=== PATIENT | female | born 1985 | race Two or more races ===

== ENCOUNTER 2017-01-08 02:22 | Emergency (ER) | payer OTHER ==
[2017-01-08] MEDS ORDERED: Morphine INJ* 4 MG/ML 1 ML CARPUJECT IV ONE (02:49)
[2017-01-08] MEDS ORDERED: NS 0.9% 1000 ML* 1,000 ML IV ONE (02:49)
[2017-01-08] MEDS ORDERED: Ondansetron INJ* 2 MG/ML VIAL IV ONE (02:49)
[2017-01-08 03:15] LABS: Add Diff/Slide Review? Slide Review Added; Comments Flag Yes; Hematocrit 39 % (35-47); Hemoglobin 12.9 g/dl (12.0-16.0); Mean Corpuscular HGB Conc 33 g/dl (31-36); Mean Corpuscular Hemoglobin 24 pg (27-31); Mean Corpuscular Volume 73 fL (80-97); Mean Platelet Volume 9 um3 (7.4-10.4); Red Blood Count 5.33 10^6/ul (4.0-5.4); Red Cell Distribution Width 14 % (10.5-15); White Blood Count 6.6 10^3/ul (3.5-10.8)
[2017-01-08 03:32] LABS: ALT 16 U/L (7-52); AST 19 U/L (13-39); Albumin 4.5 g/dL (3.2-5.2); Alkaline Phosphatase 56 U/L (34-104); Anion Gap 10 mmol/L (2-11); BUN/Creatinine Ratio 25.4 (8-20); Blood Urea Nitrogen 18 mg/dL (6-24); CO2 Carbon Dioxide 20 mmol/L (22-32); Calcium 9.8 mg/dL (8.6-10.3); Chloride 103 mmol/L (101-111); EGFR African American 124.3 (>60); EGFR Non-African American 96.7 (>60); Globulin 3.5 g/dL (2-4); Glucose 97 mg/dL (70-100); Lipase 32 U/L (11.0-82.0); Potassium 3.5 mmol/L (3.5-5.0); Sodium 133 mmol/L (133-145)
[2017-01-08] MEDS ORDERED: Iohexol 300* (CONTRAST) 10 ML SDV IV ONE (03:41)
[2017-01-08 03:42] LABS: Urine Bilirubin Negative (Negative); Urine Glucose Negative (Negative); Urine Nitrite Negative (Negative)
[2017-01-08] MEDS ORDERED: Pantoprazole IV* 80 MG in NS 0.9% 250 ML* 250 ML IVPB ONE (04:30)
[2017-01-08 05:39] VITALS: BP 100/49
--- NOTE | 2017-01-08 07:00 | ED ---
Alejandro Paz Adam, scribed for Froylan Pino on 01/08/17 at 0243 . Abdominal Pain/Female - HPI Summary HPI Summary: Pt is a 31 year old female presenting with epigastric pain. She states that the pain set on suddenly at 01:30 this morning and it has been radiating to her back. She took Protonix but it did not alleviate her pain. She has never had this pain before. Pt denies any nausea, vomiting, and fever. She denies any PMHx or surgical hx. No tobacco/alcohol use. - History of Current Complaint Chief Complaint: EDAbdPain Stated Complaint: CHEST PAIN/BACK PAIN Time Seen by Provider: 01/08/17 02:36 Hx Obtained From: Patient Onset/Duration: Sudden Onset, Lasting Minutes, Still Present Timing: Constant Severity Initially: Moderate Severity Currently: Moderate Pain Intensity: 8 Pain Scale Used: 0-10 Numeric Location: Epigastric Radiates: Yes Radiates to: Back Aggravating Factor(s): Nothing Alleviating Factor(s): Nothing Associated Signs and Symptoms: Positive: Negative Allergies/Adverse Reactions: Allergies Allergy/AdvReac Type Severity Reaction Status Date / Time No Known Allergies Allergy Verified 01/08/17 02:32 PMH/Surg Hx/FS Hx/Imm Hx Previously Healthy: Yes Infectious Disease History: No Infectious Disease History: Denies: Traveled Outside the [place] in Last 30 Days - Family History Known Family History: Positive: None - Pt states "No" - Social History Occupation: Student Lives: Alone Alcohol Use: None Hx Substance Use: No Substance Use Type: Reports: None Hx Tobacco Use: No Smoking Status (MU): Never Smoked Tobacco Review of Systems Negative: Fever Positive: Abdominal Pain. Negative: Vomiting, Nausea All Other Systems Reviewed And Are Negative: Yes Physical Exam Triage Information Reviewed: Yes Vital Signs On Initial Exam: Initial Vitals Temp Pulse Resp BP Pulse Ox 99.2 F 67 22 96/68 100 01/08/17 02:29 01/08/17 02:29 01/08/17 02:29 01/08/17 02:29 01/08/17 02:29 Vital Signs Reviewed: Yes Appearance: Positive: Well-Appearing, No Pain Distress Skin: Positive: Warm, Skin Color Reflects Adequate Perfusion, Dry Head/Face: Positive: Normal Head/Face Inspection Eyes: Positive: EOMI, CAMI ENT: Positive: Normal ENT inspection Neck: Positive: Supple, Nontender Respiratory/Lung Sounds: Positive: Clear to Auscultation, Breath Sounds Present Cardiovascular: Positive: RRR, Pulses are Symmetrical in both Upper and Lower Extremities Abdomen Description: Positive: Soft, Other: - Tenderness in the epigastric region Bowel Sounds: Positive: Present Musculoskeletal: Positive: Normal, Strength/ROM Intact Neurological: Positive: Normal, Sensory/Motor Intact, Alert, Oriented to Person Place, Time Diagnostics - Vital Signs Vital Signs Temp Pulse Resp BP Pulse Ox 01/08/17 02:29 99.2 F 67 22 96/68 100 - Laboratory Result Diagrams: 01/08/17 03:00 01/08/17 03:00 Lab Statement: Any lab studies that have been ordered have been reviewed, and results considered in the medical decision making process. - Radiology CXR Xray Interpretation: No Acute Changes Radiology Interpretation Completed By: ED Physician - CT A/P CT Interpretation Completed By: Radiologist - NO BOWEL OBSTRUCTION, COLITIS, FREE FLUID OR FREE AIR. APPENDIX NOT SEEN WITH CERTAINTY. UNREMARKABLE STOMACH, LIVER, SPLEEN, PANCREAS AND GALLBLADDER. TINY CORTICAL HYPODENSITY RIGHT KIDNEY. 1.8 CM CORPUS LUTEUM LEFT KIDNEY. - Additional Comments Diagnostic Additional Comments: Troponin I - 0.00 Abdominal Pain Fem Course/Dx - Diagnoses Provider Diagnoses: Abdominal pain Discharge - Discharge Plan Condition: Stable Disposition: HOME Patient Education Materials: Abdominal Pain (ED) Referrals: [facility] HARJINDER Malcolm [Primary Care Provider] - Additional Instructions: Follow up with [facility] in 2-3 days. The documentation as recorded by the Alejandro simon Adam accurately reflects the service I personally performed and the decisions made by , Froylan Pino.
--- NOTE | 2017-01-08 08:08 | RAD ---
HISTORY: Abdominal pain COMPARISONS: None VIEWS: 2: Frontal dual-energy and lateral views of the chest. FINDINGS: CARDIOMEDIASTINAL SILHOUETTE: The cardiomediastinal silhouette is normal. CEE: The cee are normal. PLEURA: The costophrenic angles are sharp. No pleural abnormalities are noted. LUNG PARENCHYMA: The nipple shadow is noted overlying the left lower lung. Lung parenchyma is otherwise clear ABDOMEN: The upper abdomen is clear. There is no subphrenic gas. BONES AND SOFT TISSUES: No bone or soft tissue abnormalities are noted. OTHER: None. IMPRESSION: LEFT LOWER LUNG NIPPLE SHADOW. IF THERE IS CLINICAL CONCERN FOR PERIPHERAL NODULE, CONSIDER REPEAT EVALUATION WITH NIPPLE MARKERS. OTHERWISE UNREMARKABLE CHEST RADIOGRAPH
--- NOTE | 2017-01-08 08:28 | RAD ---
INDICATION: Abdominal/epigastric pain. Sudden onset of epigastric pain. COMPARISON: Chest radiograph of the same date. TECHNIQUE: Multidetector CT images were obtained from the lung bases to the ischial tuberosities with 77 mL Omnipaque 300 IV and oral contrast. Multiplanar reformation. REPORT: Unremarkable visualized inferior thorax. Normal size liver is decreased in density consistent with fatty infiltration. Distended gallbladder with suggestion of stones at the level of the neck. Small volume of pericholecystic fluid. No gross CT evidence for gallbladder wall thickening. Upper normal diameter of the common bile duct. No visualized common bile duct stones within limits of CT. Unremarkable pancreas and spleen. Negative for CT abnormality of the upper GI, small bowel, appendix visualized descending medial to the cecum, or colon. Negative for ascites, free air, or significant hernias. Normal adrenal glands. Unremarkable kidneys with symmetric nephrograms and pyelograms. Unremarkable ureters, urinary bladder, uterus, and adnexal regions. Negative for lymphadenopathy. Normal diameter abdominal aorta and iliac arteries. Physiologic distention of the IVC. Negative for suspicious osseous lesions. IMPRESSION: Distended gallbladder with evidence for cholelithiasis and small volume of pericholecystic fluid. Early acute cholecystitis is not excluded. Further assessment with RIGHT upper quadrant ultrasound suggested. Results and need for RIGHT upper quadrant ultrasound suggested with charge nurse Az in the ED 01/08/2017 8:13 AM EST
== END 2017-01-08 05:37 | disposition home or self-care (01) ==
LOC: ED 02:22
DX: R10.9 Unspecified abdominal pain (principal); R07.9 Chest pain, unspecified; M54.9 Dorsalgia, unspecified
CPT/HCPCS: 36415; 71020; 74177; 80053; 81003; 83690; 83880; 84484; 84702; 85025; 85610; 85730; 96374; 96375; 99283; J2270; J2405; Q9967

== ENCOUNTER 2017-01-08 13:39 | Emergency (ER) | payer OTHER ==
--- NOTE | 2017-01-08 15:24 | RAD ---
INDICATION: Cholelithiasis and possible cholecystitis. COMPARISON: Comparison is made with a prior CT of the abdomen and pelvis obtained earlier today. TECHNIQUE: Multiple real-time images of the right upper quadrant were obtained. FINDINGS: There are multiple gallstones present. No gallbladder wall thickening or pericholecystic fluid is seen. No positive sonographic Covarrubias sign was present. No intra or extrahepatic ductal distention is present. The common bile duct measured 0.3 cm in diameter. The liver is normal in size without significant focal abnormality. The pancreas is partially obscured by overlying bowel gas. The right kidney is normal in size without evidence for hydronephrosis. IMPRESSION: CHOLELITHIASIS, NO SPECIFIC EVIDENCE FOR ACUTE CHOLECYSTITIS.
[2017-01-08 16:15] VITALS: BP 102/65
--- NOTE | 2017-01-08 18:40 | ED ---
Abdominal Pain/Female - HPI Summary HPI Summary: Patient arrives back to ED after being discharged early this morning. Patient was seen for epigastric pain radiating to the back x 2 since this morning. Patient awoke in the night about 2 am with 10/10 pain. Last meal was several hours before and she does not feel they are related. Patient has constipation at baseline, but denies other GI issues. She was discharged after preliminary CT showed no acute changes or pathologies. Day radiologist read report as cholelithiasis and patient was called to return to ED. US completed which showed cholelithiasis without cholecystitis. Patient denies current pain but last meal was >15 hours ago. She states she has drunk some liquids without problems, but has not eaten. She was discharged with follow up with GI and prescription for pantoprazole. - History of Current Complaint Chief Complaint: EDAbdPain Stated Complaint: NEEDS ULTRASOUND/CALLED FROM ED Time Seen by Provider: 01/08/17 15:09 Hx Obtained From: Patient ?: No Onset/Duration: Sudden Onset Timing: Intermittent Episode Lasting - 30 minutes. Severity Initially: Severe Severity Currently: None Pain Intensity: 0 Pain Scale Used: 0-10 Numeric Location: Epigastric Radiates: Yes Radiates to: Back - midback Aggravating Factor(s): Nothing Alleviating Factor(s): Nothing Associated Signs and Symptoms: Positive: Constipation - Risk Factors Ectopic Risk Factor: Maternal Age ^ 30 Ovarian Torsion Risk Factor: Reproductive Age Allergies/Adverse Reactions: Allergies Allergy/AdvReac Type Severity Reaction Status Date / Time No Known Allergies Allergy Verified 01/08/17 02:32 PMH/Surg Hx/FS Hx/Imm Hx Previously Healthy: Yes Endocrine/Hematology History: Denies: Hx Diabetes Cardiovascular History: Denies: Hx Hypertension History: Denies: Hx Dialysis, Hx Renal Disease Infectious Disease History: No Infectious Disease History: Denies: Traveled Outside the [place] in Last 30 Days - Family History Known Family History: Positive: None - Pt states "No" - Social History Occupation: Employed Full-time Lives: With Family Alcohol Use: None Hx Substance Use: No Substance Use Type: Reports: None Hx Tobacco Use: No Smoking Status (MU): Never Smoked Tobacco Review of Systems Constitutional: Negative Eyes: Negative Cardiovascular: Negative Positive: Abdominal Pain, Other - constipation Positive: no symptoms reported, see HPI Musculoskeletal: Negative Skin: Negative Neurological: Negative Psychological: Normal All Other Systems Reviewed And Are Negative: Yes Physical Exam Triage Information Reviewed: Yes Vital Signs On Initial Exam: Initial Vitals Temp Pulse Resp BP Pulse Ox 98.8 F 82 16 102/69 100 01/08/17 13:44 01/08/17 13:44 01/08/17 13:44 01/08/17 13:44 01/08/17 13:44 Vital Signs Reviewed: Yes Appearance: Positive: Well-Appearing, No Pain Distress, Well-Nourished Skin: Positive: Warm, Skin Color Reflects Adequate Perfusion Eyes: Positive: Normal, CAMI, Conjunctiva Clear ENT: Positive: Normal ENT inspection Neck: Positive: Supple, Nontender, No Lymphadenopathy Respiratory/Lung Sounds: Positive: Clear to Auscultation, Breath Sounds Present Cardiovascular: Positive: Normal, RRR Abdomen Description: Positive: Other: - mild tenderness on deep palpation in all 4 quadrants. Negative murphys sign. Musculoskeletal: Positive: Normal, Strength/ROM Intact Neurological: Positive: Sensory/Motor Intact, Speech Normal Psychiatric: Positive: Normal AVPU Assessment: Alert Diagnostics - Vital Signs Vital Signs Temp Pulse Resp BP Pulse Ox 01/08/17 16:14 98.3 F 68 15 102/65 01/08/17 15:37 69 99 01/08/17 15:36 98/65 01/08/17 13:44 98.8 F 82 16 102/69 100 - Laboratory Lab Statement: Any lab studies that have been ordered have been reviewed, and results considered in the medical decision making process. Abdominal Pain Fem Course/Dx - Course Course Of Treatment: Patient seen this morning and discharged with rx for pantoprazole. Patient returned for US as preliminery failed to show any GB pathologies. Now, diagnosed with cholelthiasis without cholecystitis. Patient without pain at this time. Encouraged previous providers plan with trial of pantoprazole and follow up with GI. Patient also encouraged to take maalox for immediate break through pain and to return if symptoms fail to improve. - Diagnoses Differential Diagnosis: Positive: Constipation, Gall Bladder Disease, Peptic Ulcer Disease Provider Diagnoses: Epigastric abdominal pain Discharge - Discharge Plan Condition: Stable Disposition: HOME Patient Education Materials: Peptic Ulcer (ED), Gallstones (ED), Diet for Ulcers and Gastritis (ED) Referrals: HARJINDER Alegria [Primary Care Provider] - Jack Kerr MD [Medical Doctor] - Additional Instructions: Follow up with Dr. Kerr next week. As discussed, we cannot be sure if the pain you are experiencing is from an ulcer or gallstones or something else. I have give you information on both. If you develop worsening pain, fever, nausea or vomiting, come back to ED. You may take Maalox to try to alleviate mild to moderate pain in the epigastric region as discussed. If this pain is severe, come back to ED.
== END 2017-01-08 16:14 | disposition home or self-care (01) ==
LOC: ED 13:39
DX: R10.13 Epigastric pain (principal); K59.00 Constipation, unspecified
CPT/HCPCS: 76705; 99281

== ENCOUNTER 2017-10-17 08:00 | Inpatient (IN) | payer MEDICAID ==
[2017-10-17 09:35] LABS: Hematocrit 37 % (35-47); Hemoglobin 12.3 g/dl (12.0-16.0); Mean Corpuscular HGB Conc 34 g/dl (31-36); Mean Corpuscular Hemoglobin 26 pg (27-31); Mean Corpuscular Volume 76 fL (80-97); Mean Platelet Volume 10 um3 (7.4-10.4); Red Blood Count 4.83 10^6/ul (4.0-5.4); Red Cell Distribution Width 14 % (10.5-15); White Blood Count 8.1 10^3/ul (3.5-10.8)
[2017-10-17] MEDS ORDERED: Oxytocin in LR* 20 UNITS/1,000 ML BAG IVPB ONE (09:41)
[2017-10-17] MEDS ORDERED: Oxytocin in LR* 20 UNITS/1,000 ML BAG IVPB SCH ×2 (10:00→14:00)
[2017-10-17] MEDS ORDERED: fentaNYL* 50 MCG/ML 2 ML VIAL (100 MCG VIAL) ONE (10:12)
[2017-10-17] MEDS ORDERED: OBEPIDURAL* 250 ML EPIDURAL ONE (10:12)
[2017-10-17] MEDS ORDERED: Phenylephrine IV* 40 MCG/ML 10 ML SYRINGE IV PUSH PRN ×2 (11:13)
[2017-10-17] MEDS ORDERED: Famotidine TAB* 20 MG PO PRN (11:13)
[2017-10-17] MEDS ORDERED: Sodium Citrate/Citric Acid* 15 ML UDC PO PRN (11:13)
[2017-10-17] MEDS ORDERED: Dibucaine 1% 28.35 GM TUBE PR PRN (13:23)
[2017-10-17] MEDS ORDERED: Acetaminophen TAB* 325 MG PO PRN (13:23)
[2017-10-17] MEDS ORDERED: Witch Hazel PAD* JAR TOPICAL PRN (13:23)
[2017-10-17] MEDS ORDERED: Glycerin ADULT SUPP PR PRN (13:23)
[2017-10-17] MEDS: Docusate CAP* 100 MG PO SCH (21:22)
[2017-10-17] MEDS: Ibuprofen TAB* 600 MG PO PRN (21:22)
[2017-10-18 06:31] LABS: Hematocrit 31 % (35-47); Hemoglobin 10.6 g/dl (12.0-16.0); Mean Corpuscular HGB Conc 34 g/dl (31-36); Mean Corpuscular Hemoglobin 26 pg (27-31); Mean Corpuscular Volume 76 fL (80-97); Mean Platelet Volume 9 um3 (7.4-10.4); Red Blood Count 4.06 10^6/ul (4.0-5.4); Red Cell Distribution Width 14 % (10.5-15); White Blood Count 9.2 10^3/ul (3.5-10.8)
[2017-10-18] MEDS: Docusate CAP* 100 MG PO SCH ×3 (08:10→21:52)
[2017-10-18] MEDS: Prenatal Vitamin TAB PO SCH (08:10)
[2017-10-18] MEDS ORDERED: Ferrous Gluconate TAB* 324 MG TAB PO SCH (09:00)
[2017-10-18] MEDS: Ibuprofen TAB* 600 MG PO PRN ×2 (11:39→20:06)
[2017-10-18] MEDS: Simethicone TAB* 80 MG TAB.CHEW PO SCH (14:46)
[2017-10-19] MEDS: OBEPIDURAL* 250 ML EPIDURAL SCH (07:20)
[2017-10-19] MEDS: Simethicone TAB* 80 MG TAB.CHEW PO SCH ×2 (07:22→07:23)
[2017-10-19 08:13] VITALS: BP 102/56
[2017-10-19] MEDS: Docusate CAP* 100 MG PO SCH (09:19)
[2017-10-19] MEDS: Prenatal Vitamin TAB PO SCH (09:19)
--- NOTE | 2017-10-19 12:12 | PTEDU ---
Patient Name: MOISES MARIA MOISES MARIA selected video: Never Ever Shake a Baby to view on 10/19/2017 at 12:11:18 PM from [facility] [id number]
== END 2017-10-19 13:31 | disposition home or self-care (01) | DRG 560 ==
LOC: MCHOBOUT 08:00 → MCHOB 09:38
PROVIDERS: ADMIT Obstetrics & Gynecology; ATTEND Obstetrics & Gynecology
PROC: 10E0XZZ Delivery of Products of Conception, External Approach (ICD-10-PCS; principal; 2017-10-17)
PROC: 0KQM0ZZ Repair Perineum Muscle, Open Approach (ICD-10-PCS; 2017-10-17)
PROC: 10907ZC Drainage of Amniotic Fluid, Therapeutic from Products of Conception, Via Natural or Artificial Opening (ICD-10-PCS; 2017-10-17)
DX: O36.5930 Maternal care for other known or suspected poor fetal growth, third trimester, not applicable or unspecified (principal); O70.1 Second degree perineal laceration during delivery; Z3A.39 39 weeks gestation of pregnancy; Z37.0 Single live birth
CPT/HCPCS: 36415; 85025; 86850; 86900; 86901; A9270-GY; J3010